=== PATIENT | female | born 1990 | race Caucasian/White ===

== ENCOUNTER 2018-05-03 19:23 | Emergency (ER) | payer BC, OTHER ==
[~2018-05-03] VITALS: Ht 170.2 cm; Wt 87.5 kg
[~2018-05-03 19:23] MED LIST: IBUP-1222 PO; OXYC-302 PO; PREN-1 PO
[2018-05-03 19:40] VITALS: BP 125/73
== END 2018-05-03 20:43 | disposition other institution (70) ==
LOC: ED 20:35
DX: S13.9XXA Sprain of joints and ligaments of unspecified parts of neck, initial encounter (principal); S16.1XXA Strain of muscle, fascia and tendon at neck level, initial encounter; Z88.6 Allergy status to analgesic agent; W01.0XXA Fall on same level from slipping, tripping and stumbling without subsequent striking against object, initial encounter; Y93.89 Activity, other specified; Y92.009 Unspecified place in unspecified non-institutional (private) residence as the place of occurrence of the external cause; Y99.8 Other external cause status; M06.9 Rheumatoid arthritis, unspecified
CPT/HCPCS: 99284